=== PATIENT | male | born 2000 | race Caucasian/White ===

== ENCOUNTER 2024-09-18 16:53 | Emergency (ER) | payer OTHER ==
[~2024-09-18] VITALS: Ht 177.8 cm; Wt 107.6 kg
[2024-09-18] MEDS ORDERED: THERTAB52 PO (17:06)
[2024-09-18 18:41] VITALS: BP 148/84; TEMP 98.9; O2SAT 98
[2024-09-18] MEDS: ACETAMINOPHEN 500 MG TAB PO ONE (18:43)
[2024-09-18] MEDS: IBUPROFEN 600 MG TAB PO ONE (18:43)
== END 2024-09-18 18:46 | disposition home or self-care (01) ==
LOC: M ED 16:53
DX: R10.31 Right lower quadrant pain (principal); M79.662 Pain in left lower leg; F10.10 Alcohol abuse, uncomplicated; Z79.810 Long term (current) use of selective estrogen receptor modulators (SERMs)